=== PATIENT | male | born 1970 | race Caucasian/White ===

== ENCOUNTER 2022-08-28 08:16 | Inpatient (IN) | payer OTHER ==
[~2022-08-28] VITALS: Ht 182.9 cm; Wt 77.1 kg
[2022-08-28] VITALS (8 sets, daily range): BP systolic 119–145; BP diastolic 75–98
[2022-08-28] MEDS ORDERED: LORAZEPAM 1 MG TABLET PO ONE (08:30)
--- NOTE | 2022-08-28 08:30 | NUR ---
CAME IN C/O CHEST PAIN SINCE THIS MORNING
--- NOTE | 2022-08-28 08:32 | NUR ---
HOOKED TO MONITOR
--- NOTE | 2022-08-28 08:32 | NUR ---
TECH AT BEDSIDE FOR EKG
--- NOTE | 2022-08-28 08:35 | NUR ---
ESTABLISHED IV LINE 20 RIGHT AC , BLOOD SAMPLE OBTAINED SENT TO LAB
[2022-08-28] MEDS ORDERED: LORAZEPAM 1 MG TABLET ONE (08:42)
[2022-08-28 08:57] LABS: BASOPHILS # (AUTO) 0.1 K/uL (0.0-0.2); BASOPHILS % (AUTO) 1.3 % (0.0-2.0); EOSINOPHILS % (AUTO) 1.6 % (0.0-6.0); HEMATOCRIT 47 % (39-51); HEMOGLOBIN 15.8 g/dL (13.5-17.5); LYMPHOCYTES # (AUTO) 2.7 K/uL (0.8-4.8); LYMPHOCYTES % (AUTO) 38.7 % (20.0-44.0); MEAN CORPUSCULAR HGB CONC 34 g/dl (31.0-36.0); MEAN CORPUSCULAR VOLUME 103 fL (80-96); MONOCYTES # (AUTO) 0.8 K/uL (0.1-1.30); MONOCYTES % (AUTO) 11.4 % (2.0-12.0); NEUTROPHILS # (AUTO) 3.2 K/uL (1.8-8.9); PLATELET COUNT (AUTO) 220 K/uL (150-450); RED BLOOD CELL COUNT(AUTO) 4.54 MIL/uL (4.5-6.0); WHITE BLOOD COUNT (AUTO) 6.9 K/uL (4.3-11.0)
[2022-08-28 09:08] LABS: CALCIUM, SERUM 9.6 mg/dL (8.5-10.1); CARBON DIOXIDE 22 mmol/L (21-32); CHLORIDE 100 mmol/L (98-107); CREATININE 1.4 mg/dL (0.6-1.3); GLUCOSE 139 mg/dL (74-106); POTASSIUM 2.9 mmol/L (3.5-5.1); SODIUM SERUM 141 mmol/L (136-145); UREA NITROGEN, BLOOD 8 mg/dL (7-18)
[2022-08-28 09:16] LABS: ALANINE AMINOTRANSFERASE 105 U/L (12-78); ALBUMIN 4.2 g/dL (3.4-5.0); ALKALINE PHOSPHATASE 113 U/L (46-116); ASPARTATE AMINOTRANSFERASE 80 U/L (15-37); BILIRUBIN,DIRECT 0.4 mg/dL (0.0-0.2); BILIRUBIN,TOTAL 1.1 mg/dL (0.2-1.0); TOTAL PROTEIN, SERUM 7.8 g/dL (6.4-8.2)
--- NOTE | 2022-08-28 09:29 | NUR ---
Epic supervisor education paged via exchange
[2022-08-28] MEDS: POTASSIUM CL. PREMIX PERIPHER. 50 ML IV SCH ×4 (09:30→12:55)
[2022-08-28] MEDS ORDERED: ASPIRIN 325 MG TABLET PO ONE (09:30)
[2022-08-28] MEDS ORDERED: POTASSIUM CL. PREMIX PERIPHER. 50 ML ONE ×4 (09:34→12:51)
[2022-08-28] MEDS ORDERED: ASPIRIN 325 MG TABLET ONE (09:34)
--- NOTE | 2022-08-28 10:17 | NUR ---
DR. CHRISTOPHER SPEAKING WITH DR. PHILLIPS.
[2022-08-28] MEDS ORDERED: ONDANSETRON HCL/PF 4 MG/2 ML VIAL ONE (10:27)
[2022-08-28] MEDS ORDERED: ONDANSETRON HCL/PF - ER 4 MG/2 ML VIAL IV ONE (10:30)
--- NOTE | 2022-08-28 11:00 | NUR ---
COVID SWAB TAKEN SENTTO LAB
[2022-08-28] MEDS ORDERED: MORPHINE SULFATE INJ 2 MG/ML DISP.SYRIN IV ONE (12:00)
[2022-08-28] MEDS ORDERED: MORPHINE SULFATE INJ 4 MG/ML DISP.SYRIN ONE (12:01)
--- NOTE | 2022-08-28 14:25 | NUR ---
TROPONIN LEVEL = 1111 NOTIFIED
--- NOTE | 2022-08-28 14:35 | NUR ---
TROPONIN LEVEL REPORTED TO DR. PHILLIPS
[2022-08-28] MEDS ORDERED: NITROGLYCERIN 0.4 MG/HR PATCH.TD24 TD SCH (15:00)
[2022-08-28] MEDS ORDERED: ENOXAPARIN SODIUM 80 MG/0.8 ML DISP.SYRIN SQ ONE ×2 (15:00→15:41)
[2022-08-28] MEDS ORDERED: IV SET PRIMARY PUMP SET 1 EA INFUS.SET MC ONE (16:38)
[2022-08-28] MEDS ORDERED: IV NS 0.9% 1,000 ML ONE (16:38)
[2022-08-28] MEDS ORDERED: LIDOCAINE HCL/MPF 1% 30 ML VIAL IJ ONE (16:39)
[2022-08-28] MEDS ORDERED: MIDAZOLAM HCL 2 MG/2ML VIAL ONE (16:39)
[2022-08-28] MEDS ORDERED: FENTANYL PF 100MCG/2ML AMPUL ONE (16:39)
[2022-08-28] MEDS ORDERED: IODIXANOL 150 ML IV ONE (16:41)
--- NOTE | 2022-08-28 16:53 | NUR ---
PATIENT TAKEN TO CATH. LAB VIA ANDREW
--- NOTE | 2022-08-28 17:11 | NUR ---
GOT BED 251
[2022-08-28] MEDS ORDERED: IODIXANOL 320MG/ML 50 ML IV ONE (17:39)
[2022-08-28] MEDS ORDERED: MAGNESIUM HYDROXIDE 30 ML UDC PO PRN (18:00)
[2022-08-28] MEDS ORDERED: Z GUARD REMEDY 4 OZ OINT TP PRN (18:00)
[2022-08-28] MEDS ORDERED: MORPHINE SULFATE INJ 2 MG/ML DISP.SYRIN IV PRN (18:00)
[2022-08-28] MEDS ORDERED: ACETAMINOPHEN 325 MG TABLET PO PRN (18:00)
[2022-08-28] MEDS ORDERED: ZOLPIDEM TARTRATE 5 MG TABLET PO PRN (18:00)
[2022-08-28] MEDS ORDERED: MAG HYDROX/AL HYDROX/SIMETH 30 ML UDC PO PRN (18:00)
[2022-08-28] MEDS ORDERED: HYDROCODONE/APAP 5/325MG TABLET PO PRN (18:00)
--- NOTE | 2022-08-28 18:08 | NUR ---
PATIENT REDIRECT TO ICU FROM CATH. LAB. REPORT GIVEN TO STEPHANIE CHILDRESS ICU ROOM 251 FOR BULMARO
--- NOTE | 2022-08-28 18:30 | NUR ---
SURFACING MACHINE OPERATOR RECEIVED FROM SHELL PRESS OPERATOR BY TALON WITH MONITOR. REPORT RECEIVED FROM ROBERT GRACE RN (SHELL PRESS OPERATOR RN). PT AWAKE AND ALERT FOLLOWING COMMANDS. SPEECH CLEAR. TR BAND OVER RIGHT RADIAL ARTERY INTACT, INFLATED. WILL START TO DEFLATE AROUND 1944. NO BLEEDING SEEN IN AREA.
[2022-08-28] MEDS: ONDANSETRON HCL/PF 4 MG/2 ML VIAL IVP PRN (19:13)
--- NOTE | 2022-08-28 19:13 | NUR ---
CROSS TIE CUTTER PT C/O NAUSEA. MEDICATED WITH ZOFRAN.
--- NOTE | 2022-08-28 19:22 | NUR ---
ICU/RN: DR. CALDWELL NOTIFIED OF CRITICAL TROPONIN AND THAT ITS TRENDING DOWN. NO NEW ORDERS.
[2022-08-28] MEDS ORDERED: ENOXAPARIN SODIUM 40 MG/0.4 ML DISP.SYRIN SQ SCH (20:00)
--- NOTE | 2022-08-28 21:35 | NUR ---
TR BAND REMOVAL: 2000: 3ML AIR REMOVED NO BLEEDING 2030: 3ML AIR REMOVED NO BLEEDING 2045: 3ML AIR REMOVED NO BLEEDING 2115: 3ML AIR REMOVED NO BLEEDING 2135: 4ML AIR REMOVED NO BLEEDING. TR BAND REMOVED. TRANSPARENT DRESSING APPLIED.
[2022-08-28] MEDS ORDERED: SIMVASTATIN 20 MG TABLET PO SCH (22:00)
[2022-08-29] VITALS: BP 130/91
[2022-08-29] MEDS: ONDANSETRON HCL/PF 4 MG/2 ML VIAL IVP PRN (00:58)
[2022-08-29 01:01] VITALS: BP 139/79
[2022-08-29 02:02] VITALS: BP 194/147
[2022-08-29 03:07] VITALS: BP 136/39
[2022-08-29 04:00] VITALS: BP 142/94
--- NOTE | 2022-08-29 04:30 | NUR ---
ICU/RN: PT REFUSING LABS AND ANY OTHER TREATMENTS AND IS REQUESTING TO LEAVE THE HOSPITAL AGAINST MEDICAL ADVICE. ALL BENEFITS OF HOSPITALIZATION AND RISKS OF LEAVING AGAINST MEDICAL ADVICE INCLUDING EXPLAINED TO PT. PT VERBALIZED UNDERSTANDING. RIGHT AC #20 IV CATH REMOVED TIP INTACT SITE BENIGN. LATISHA DAVILA DNP NOTIFIED PT ESCORTED TO EMERGENCY ROOM EXIT. PT LEFT PREMESIS.
--- NOTE | 2022-08-29 04:42 | NUR ---
ICU/RN: INCIDENT REPORT COMPLETED AND LITHOSTRIPPER NOTIFIED.
[2022-08-29] MEDS ORDERED: PANTOPRAZOLE 40 MG TABLET.DR PO SCH (07:30)
[2022-08-29] MEDS ORDERED: ASPIRIN 325 MG TABLET PO SCH (09:00)
== END 2022-08-29 04:25 | disposition home or self-care (01) | DRG 190 ==
LOC: ER 08:16 → ICU 17:34
PROVIDERS: ADMIT Student in an Organized Health Care Education/Training Program; ATTEND Student in an Organized Health Care Education/Training Program
PROC: 4A023N7 Measurement of Cardiac Sampling and Pressure, Left Heart, Percutaneous Approach (ICD-10-PCS; principal; 2022-08-28)
PROC: B215YZZ Fluoroscopy of Left Heart using Other Contrast (ICD-10-PCS; 2022-08-28)
PROC: B211YZZ Fluoroscopy of Multiple Coronary Arteries using Other Contrast (ICD-10-PCS; 2022-08-28)
DX: I21.4 Non-ST elevation (NSTEMI) myocardial infarction (principal); N17.0 Acute kidney failure with tubular necrosis; I42.9 Cardiomyopathy, unspecified; F41.9 Anxiety disorder, unspecified; Z20.822 Contact with and (suspected) exposure to COVID-19; I49.3 Ventricular premature depolarization; F10.10 Alcohol abuse, uncomplicated; F12.20 Cannabis dependence, uncomplicated; Y90.9 Presence of alcohol in blood, level not specified; E87.6 Hypokalemia; R74.01 Elevation of levels of liver transaminase levels
CPT/HCPCS: 36415; 71045-TC; 80048-TC; 80076-TC; 83690-TC; 84484-TC; 85025-TC; 87081-TC; 93307-TC; C1887; C9803; G0378; G0500; J1644; J1650; J2250; J2270; J2405; J3010; J3480; J3490; J7030; Q9967

== ENCOUNTER 2023-09-02 20:13 | Emergency (ER) | payer SELFPAY ==
[~2023-09-02] VITALS: Ht 182.9 cm; Wt 90.7 kg
[2023-09-02] MEDS ORDERED: SILVER SULFADIAZINE CREAM 25 GM TUBE TP ONE (21:00)
[2023-09-02] MEDS ORDERED: TDAP [DIPH/PERTUSSIS/TET] 0.5 ML VIAL IM ONE ×2 (21:00→21:48)
[2023-09-02] MEDS ORDERED: IV LR 1000 ML 1,000 ML BAG IV ONE ×2 (21:00)
[2023-09-02 21:19] LABS: ABG BASE EXCESS -8.7 mmol/L; ABG OXYGEN SATURATION 96.6 % (92.0-98.5); ABG PCO2 20.6 mmHg (35.0-45.0); ABG PH 7.422 (7.350-7.450); ABG PO2 93.6 mmHg (75.0-100.0); MetHb 0.3 % (0.0-1.5); O2Hb 94.4 % (94.0-97.0); SITE, ABG Right Radial; VENT MODE, BG ROOM AIR
[2023-09-02 21:41] LABS: BASOPHILS % (AUTO) 0.2 % (0.0-2.0); HEMATOCRIT 43 % (39-51); HEMOGLOBIN 14.4 g/dL (13.5-17.5); LYMPHOCYTES # (AUTO) 2.1 K/uL (0.8-4.8); LYMPHOCYTES % (AUTO) 24.8 % (20.0-44.0); MEAN CORPUSCULAR HEMOGLOBIN 32 PG (26.0-33.0); MEAN CORPUSCULAR HGB CONC 33 g/dl (31.0-36.0); MEAN CORPUSCULAR VOLUME 95 fL (80-96); MONOCYTES # (AUTO) 0.8 K/uL (0.1-1.30); MONOCYTES % (AUTO) 8.9 % (2.0-12.0); NEUTROPHILS # (AUTO) 5.7 K/uL (1.8-8.9); NEUTROPHILS % (AUTO) 66.1 % (43.0-81.0); PLATELET COUNT (AUTO) 248 K/uL (150-450); RED BLOOD CELL COUNT(AUTO) 4.55 MIL/uL (4.5-6.0); RED CELL DISTRIBUTION WIDTH 19.1 % (11.5-15.0); WHITE BLOOD COUNT (AUTO) 8.6 K/uL (4.3-11.0)
[2023-09-02] MEDS ORDERED: HYDROMORPHONE 1 MG/1 ML DISP.SYRIN ONE (21:48)
[2023-09-02 21:49] LABS: CALCIUM, SERUM 8.8 mg/dL (8.5-10.1); POTASSIUM 3.5 mmol/L (3.5-5.1)
[2023-09-02] MEDS ORDERED: HYDROMORPHONE 1 MG/1 ML DISP.SYRIN IV ONE (22:00)
[2023-09-02] MEDS ORDERED: HYDR-3972 PO (22:26)
[2023-09-02 22:50] LABS: AMPHETAMINE, URINE NEGATIVE (NEGATIVE); BARBITURATE, URINE NEGATIVE (NEGATIVE); COCCAINE, URINE NEGATIVE (NEGATIVE); PHENCYCLIDINE SCREEN,URINE NEGATIVE (NEGATIVE)
[2023-09-02 22:52] LABS: BENZODIAZEPINE, URINE POSITIVE (NEGATIVE); CANNABINOID, URINE POSITIVE (NEGATIVE); OPIATE, URINE POSITIVE (NEGATIVE)
[2023-09-02 22:58] VITALS: BP 130/70; TEMP 98; O2SAT 99
[2023-09-02] MEDS ORDERED: HYDROCODONE/APAP 5/325MG TABLET PO ONE (23:00)
[2023-09-04] MEDS ORDERED: PIPERACI/TAZO 3.375GM/D5W 50ML PB IV ONE (21:31)
[2023-09-07] MEDS ORDERED: SILV20CR13 TP (09:25)
[2023-09-07] MEDS ORDERED: CEPH250C PO (09:25)
[2023-09-07] MEDS ORDERED: Lorazepam PO (09:25)
[2023-09-07] MEDS ORDERED: Hydrocodone/Apap 5/325MG PO (09:25)
[2023-09-07] MEDS ORDERED: FLUO20CA36 PO (09:25)
[2023-09-07] MEDS ORDERED: LORA-259 PO (09:49)
[2023-09-07] MEDS ORDERED: HYDR-3976 PO (09:49)
== END 2023-09-02 22:58 | disposition home or self-care (01) ==
LOC: ER 20:14
DX: T20.27XA Burn of second degree of neck, initial encounter (principal); T24.211A Burn of second degree of right thigh, initial encounter; T24.202A Burn of second degree of unspecified site of left lower limb, except ankle and foot, initial encounter; T24.201A Burn of second degree of unspecified site of right lower limb, except ankle and foot, initial encounter; T22.112A Burn of first degree of left forearm, initial encounter; T22.111A Burn of first degree of right forearm, initial encounter; T31.11 Burns involving 10-19% of body surface with 10-19% third degree burns; F17.200 Nicotine dependence, unspecified, uncomplicated; Z60.2 Problems related to living alone; X08.8XXA Exposure to other specified smoke, fire and flames, initial encounter; Y93.89 Activity, other specified; Y92.89 Other specified places as the place of occurrence of the external cause; Y99.8 Other external cause status
CPT/HCPCS: 99285; 96374; 90471; 96361; 93005; 82803; 90715; 71045; 85025; 80048; 82550; 36415; 36600 ×2; 80320; 80307; J7120 ×3; J1170; G0480; J2543

== ENCOUNTER 2023-09-04 15:02 | Inpatient (IN) | payer MEDICAID ==
[~2023-09-04] VITALS: Ht 215.9 cm; Wt 83.5 kg
[~2023-09-04 15:02] MED LIST: HYDR-3972 PO
[2023-09-04 16:45] LABS: ALANINE AMINOTRANSFERASE 37 U/L (12-78); ALBUMIN 4.1 g/dL (3.4-5.0); ALCOHOL, BLOOD 261 mg/dL (0-10); ALKALINE PHOSPHATASE 114 U/L (46-116); ASPARTATE AMINOTRANSFERASE 32 U/L (15-37); BILIRUBIN,DIRECT 0.2 mg/dL (0.0-0.2); BILIRUBIN,TOTAL 0.9 mg/dL (0.2-1.0); CALCIUM, SERUM 9.5 mg/dL (8.5-10.1); CARBON DIOXIDE 15 mmol/L (21-32); CHLORIDE 99 mmol/L (98-107); CREATININE 0.8 mg/dL (0.6-1.3); GLUCOSE 79 mg/dL (74-106); POTASSIUM 3.1 mmol/L (3.5-5.1); SODIUM SERUM 138 mmol/L (136-145); TOTAL PROTEIN, SERUM 8.8 g/dL (6.4-8.2); UREA NITROGEN, BLOOD 7 mg/dL (7-18)
[2023-09-04 16:47] LABS: ACETAMINOPHEN <10 ug/ml (10-30); SALICYLATE 1.7 mg/dL (2.8-20.0)
[2023-09-04 16:55] LABS: APPEARANCE,URINE CLEAR (CLEAR); BILIRUBIN,URINE 1+ (NEGATIVE); BLOOD, URINE 1+ Ery/uL (NEGATIVE); COLOR,URINE YELLOW (YELLOW); KETONES,URINE 3+ mg/dL (NEGATIVE); LEUKOCYTE ESTERASE ,URINE NEGATIVE (NEGATIVE); NITRITE, URINE NEGATIVE (NEGATIVE); PROTEIN,URINE 2+ mg/dl (NEGATIVE); UGLUCOSE NEGATIVE (NEGATIVE); UROBILINOGEN,URINE 0.2 EU/dL (0.2)
[2023-09-04 17:05] LABS: AMPHETAMINE, URINE NEGATIVE (NEGATIVE); BARBITURATE, URINE NEGATIVE (NEGATIVE); COCCAINE, URINE NEGATIVE (NEGATIVE); PHENCYCLIDINE SCREEN,URINE NEGATIVE (NEGATIVE)
[2023-09-04 17:06] LABS: BENZODIAZEPINE, URINE POSITIVE (NEGATIVE); CANNABINOID, URINE POSITIVE (NEGATIVE); OPIATE, URINE POSITIVE (NEGATIVE)
[2023-09-04 17:10] LABS: BASOPHILS # (AUTO) 0.1 K/uL (0.0-0.2); BASOPHILS % (AUTO) 0.3 % (0.0-2.0); EOSINOPHILS % (AUTO) 0.1 % (0.0-6.0); HEMATOCRIT 48 % (39-51); HEMOGLOBIN 16.1 g/dL (13.5-17.5); LYMPHOCYTES # (AUTO) 1.7 K/uL (0.8-4.8); LYMPHOCYTES % (AUTO) 10.2 % (20.0-44.0); MEAN CORPUSCULAR HEMOGLOBIN 31 PG (26.0-33.0); MEAN CORPUSCULAR HGB CONC 33 g/dl (31.0-36.0); MEAN CORPUSCULAR VOLUME 94 fL (80-96); MONOCYTES # (AUTO) 1.3 K/uL (0.1-1.30); MONOCYTES % (AUTO) 7.8 % (2.0-12.0); NEUTROPHILS # (AUTO) 13.8 K/uL (1.8-8.9); NEUTROPHILS % (AUTO) 81.6 % (43.0-81.0); PLATELET COUNT (AUTO) 239 K/uL (150-450); RED BLOOD CELL COUNT(AUTO) 5.14 MIL/uL (4.5-6.0); RED CELL DISTRIBUTION WIDTH 18.8 % (11.5-15.0); WHITE BLOOD COUNT (AUTO) 16.9 K/uL (4.3-11.0)
[2023-09-04 17:57] LABS: ADD URINE CULTURE NO; BACTERIA,URINE Rare /HPF (None Seen); MUCUS,URINE Moderate /LPF (None Seen); SQUAMOUS EPITHELIAL CELL,UR Few /HPF (None Seen); WBC,URINE 0-2 /HPF (0-3)
[2023-09-04] MEDS ORDERED: VANCOMYCIN 1 GM in IV D5W 250 ML IV ONE (18:00)
[2023-09-04] MEDS ORDERED: CEFEPIME 1 GM in IV D5W 50 ML IV ONE (18:00)
[2023-09-04] MEDS ORDERED: IV NS 0.9% 1,000 ML BAG IV ONE (18:00)
[2023-09-04] MEDS ORDERED: ACETAMINOPHEN ES 500 MG TABLET PO PRN (18:30)
[2023-09-04 19:51] LABS: LACTIC ACID 3.4 mmol/L (0.4-2.0)
[2023-09-04] MEDS ORDERED: PIPERACILLIN /TAZOBACTAM 3.375 G in IV D5W 50 ML IV SCH (21:00)
[2023-09-04 21:30] VITALS: BP 133/95; TEMP 99.4; O2SAT 99
[2023-09-05] MEDS: HYDROCODONE/APAP 5/325MG TABLET PO PRN ×5 (01:04→23:02)
[2023-09-05] MEDS ORDERED: PIPERACILLIN /TAZOBACTAM 3.375 G in IV D5W 50 ML IV SCH (05:00)
[2023-09-05] MEDS ORDERED: PIPERACI/TAZO 3.375GM/D5W 50ML PB IV ONE (05:25)
[2023-09-05] MEDS ORDERED: VANCOMYCIN 1.5 GM in IV D5W 500ml IV ONE (06:00)
[2023-09-05 06:37] VITALS: BP 130/98; TEMP 98.8; O2SAT 98
[2023-09-05] MEDS ORDERED: VANCOMYCIN 1.25 GM in IV D5W 250 ML IV ONE (07:30)
[2023-09-05 08:07] LABS: HEMOGLOBIN 12.8 g/dL (13.5-17.5)
[2023-09-05 08:17] LABS: CALCIUM, SERUM 8.6 mg/dL (8.5-10.1); CREATININE 0.6 mg/dL (0.6-1.3)
[2023-09-05 08:18] LABS: BASOPHILS % (AUTO) 0.4 % (0.0-2.0); EOSINOPHILS % (AUTO) 0.3 % (0.0-6.0); HEMATOCRIT 38 % (39-51); LYMPHOCYTES # (AUTO) 1.5 K/uL (0.8-4.8); LYMPHOCYTES % (AUTO) 12.8 % (20.0-44.0); MEAN CORPUSCULAR HEMOGLOBIN 32 PG (26.0-33.0); MEAN CORPUSCULAR HGB CONC 34 g/dl (31.0-36.0); MEAN CORPUSCULAR VOLUME 94 fL (80-96); MONOCYTES # (AUTO) 0.9 K/uL (0.1-1.30); MONOCYTES % (AUTO) 7.6 % (2.0-12.0); NEUTROPHILS # (AUTO) 9.4 K/uL (1.8-8.9); NEUTROPHILS % (AUTO) 78.9 % (43.0-81.0); PLATELET COUNT (AUTO) 178 K/uL (150-450); RED CELL DISTRIBUTION WIDTH 18.4 % (11.5-15.0); WHITE BLOOD COUNT (AUTO) 11.9 K/uL (4.3-11.0)
[2023-09-05] MEDS ORDERED: LORAZEPAM 1 MG TABLET PO PRN (09:30)
[2023-09-05 09:33] LABS: PLATELET ESTIMATE ADEQU
[2023-09-05] MEDS: PIPERACILLIN /TAZOBACTAM 3.375 G in IV D5W 100 ML IV SCH ×2 (10:47→18:28)
[2023-09-05] MEDS: Fluoxetine 10 mg capsule PO SCH (12:14)
[2023-09-05] MEDS: LORAZEPAM INJ 2 MG/ML VIAL IV PRN ×3 (12:52→22:01)
[2023-09-05] MEDS: VANCOMYCIN 1 GM in IV D5W 250 ML IV SCH (16:42)
[2023-09-05] MEDS: POTASSIUM CHLORIDE 20 MEQ TAB.PRT.SR PO SCH ×3 (16:42→19:09)
[2023-09-05] MEDS: SILVER SULFADIAZINE 50 GM JAR TP SCH (17:26)
[2023-09-05] MEDS: ONDANSETRON HCL/PF 4 MG/2 ML VIAL IV PRN ×2 (17:46→22:13)
[2023-09-05 20:00] VITALS: BP 140/87; TEMP 99; O2SAT 97
[2023-09-06] MEDS: VANCOMYCIN 1 GM in IV D5W 250 ML IV SCH ×4 (00:21→23:09)
[2023-09-06] MEDS: PIPERACILLIN /TAZOBACTAM 3.375 G in IV D5W 100 ML IV SCH ×3 (02:07→17:46)
[2023-09-06] MEDS: LORAZEPAM INJ 2 MG/ML VIAL IV PRN ×5 (03:27→21:46)
[2023-09-06 06:48] LABS: CREATININE 0.7 mg/dL (0.6-1.3); MAGNESIUM 2.1 mg/dL (1.8-2.4); PHOSPHORUS 2.3 mg/dL (2.5-4.9); POTASSIUM 2.9 mmol/L (3.5-5.1)
[2023-09-06 07:30] VITALS: BP 146/97; TEMP 99.1; O2SAT 97
[2023-09-06] MEDS ORDERED: POTASSIUM CHLORIDE 20 MEQ TAB.PRT.SR PO ONE (08:00)
[2023-09-06] MEDS: ONDANSETRON HCL/PF 4 MG/2 ML VIAL IV PRN ×3 (08:04→16:27)
[2023-09-06 09:00] VITALS: BP 94/55; TEMP 97.9; O2SAT 78
[2023-09-06] MEDS: POTASSIUM PHOSPHATE MM 7.5 MMOL in IV NS 0.9% 100 ML IV SCH ×2 (09:35→09:36)
[2023-09-06] MEDS: SILVER SULFADIAZINE 50 GM JAR TP SCH ×2 (09:42→16:33)
[2023-09-06] MEDS: HYDROCODONE/APAP 5/325MG TABLET PO PRN ×3 (10:36→23:07)
[2023-09-06] MEDS: Fluoxetine 10 mg capsule PO SCH ×2 (13:00→13:19)
[2023-09-06] MEDS: ENSURE ENLIVE 237 ML LIQUID (VANILLA) PO SCH ×2 (13:31→17:10)
[2023-09-06] MEDS ORDERED: K PHOS NEUTRAL 250 MG TABLET PO ONE (15:30)
[2023-09-06 16:00] VITALS: BP 124/86; TEMP 99.3; O2SAT 98
[2023-09-06 20:00] VITALS: BP_SYST 124; BP_SYST 143; BP_DIAS 76; BP_DIAS 95; TEMP 98.2; TEMP 99; O2SAT 97
[2023-09-07] MEDS: LORAZEPAM INJ 2 MG/ML VIAL IV PRN (01:58)
[2023-09-07] MEDS: PIPERACILLIN /TAZOBACTAM 3.375 G in IV D5W 100 ML IV SCH ×3 (02:13→18:44)
[2023-09-07 07:00] VITALS: BP 128/95; TEMP 98.6; O2SAT 97
[2023-09-07 07:33] LABS: BASOPHILS % (AUTO) 0.5 % (0.0-2.0); EOSINOPHILS # (AUTO) 0.1 K/uL (0.0-0.7); EOSINOPHILS % (AUTO) 2.1 % (0.0-6.0); HEMATOCRIT 38 % (39-51); HEMOGLOBIN 13.2 g/dL (13.5-17.5); LYMPHOCYTES # (AUTO) 1.2 K/uL (0.8-4.8); MEAN CORPUSCULAR HEMOGLOBIN 32 PG (26.0-33.0); MEAN CORPUSCULAR HGB CONC 35 g/dl (31.0-36.0); MEAN CORPUSCULAR VOLUME 93 fL (80-96); MONOCYTES # (AUTO) 0.6 K/uL (0.1-1.30); MONOCYTES % (AUTO) 11.5 % (2.0-12.0); NEUTROPHILS # (AUTO) 3.1 K/uL (1.8-8.9); NEUTROPHILS % (AUTO) 61.9 % (43.0-81.0); PLATELET COUNT (AUTO) 201 K/uL (150-450); RED BLOOD CELL COUNT(AUTO) 4.09 MIL/uL (4.5-6.0); RED CELL DISTRIBUTION WIDTH 17.4 % (11.5-15.0)
[2023-09-07 07:54] LABS: CALCIUM, SERUM 9.1 mg/dL (8.5-10.1); CREATININE 0.9 mg/dL (0.6-1.3); PHOSPHORUS 3.1 mg/dL (2.5-4.9); POTASSIUM 2.9 mmol/L (3.5-5.1)
[2023-09-07] MEDS: ENSURE ENLIVE 237 ML LIQUID (VANILLA) PO SCH ×3 (08:08→17:38)
[2023-09-07] MEDS: VANCOMYCIN 1 GM in IV D5W 250 ML IV SCH ×2 (09:16→17:38)
[2023-09-07] MEDS ORDERED: SILV20CR13 TP (09:25)
[2023-09-07] MEDS ORDERED: CEPH250C PO (09:25)
[2023-09-07] MEDS ORDERED: FLUO20CA36 PO (09:25)
[2023-09-07] MEDS ORDERED: Hydrocodone/Apap 5/325MG PO (09:25)
[2023-09-07] MEDS ORDERED: Lorazepam PO (09:25)
[2023-09-07] MEDS: LORAZEPAM 0.5 MG TABLET PO PRN ×2 (09:28→17:27)
[2023-09-07] MEDS ORDERED: POTASSIUM CHLORIDE 20 MEQ TAB.PRT.SR PO ONE (09:30)
[2023-09-07] MEDS: SILVER SULFADIAZINE 50 GM JAR TP SCH ×2 (09:40→17:00)
[2023-09-07] MEDS ORDERED: HYDR-3976 PO (09:49)
[2023-09-07] MEDS ORDERED: LORA-259 PO (09:49)
[2023-09-07] MEDS: HYDROCODONE/APAP 5/325MG TABLET PO PRN ×2 (10:32→17:27)
[2023-09-07] MEDS: ONDANSETRON HCL/PF 4 MG/2 ML VIAL IV PRN ×2 (10:35→17:29)
[2023-09-07] MEDS ORDERED: FLUOXETINE HCL 20 MG CAPSULE PO SCH (13:00)
== END 2023-09-07 19:44 | disposition home or self-care (01) | DRG 843 ==
LOC: ER 15:05 → MED 21:23
PROVIDERS: ADMIT Nurse Practitioner Family; ATTEND Internal Medicine
PROC: 05H933Z Insertion of Infusion Device into Right Brachial Vein, Percutaneous Approach (ICD-10-PCS; principal; 2023-09-04)
DX: T24.302A Burn of third degree of unspecified site of left lower limb, except ankle and foot, initial encounter (principal); E87.20 Acidosis, unspecified; F33.3 Major depressive disorder, recurrent, severe with psychotic symptoms; L03.115 Cellulitis of right lower limb; F29 Unspecified psychosis not due to a substance or known physiological condition; T31.0 Burns involving less than 10% of body surface; L03.116 Cellulitis of left lower limb; E87.6 Hypokalemia; T24.311A Burn of third degree of right thigh, initial encounter; F10.129 Alcohol abuse with intoxication, unspecified; Y90.8 Blood alcohol level of 240 mg/100 ml or more; F19.10 Other psychoactive substance abuse, uncomplicated; X08.8XXA Exposure to other specified smoke, fire and flames, initial encounter; Y93.9 Activity, unspecified; T20.25XA Burn of second degree of scalp [any part], initial encounter; Y92.039 Unspecified place in apartment as the place of occurrence of the external cause
CPT/HCPCS: 36415; 71045-TC; 80048-TC; 80076-TC; 80202-TC; 81001; 83605-TC; 83735-TC; 84100-TC; 84132-TC; 84484-TC; 85025-TC; 87040-TC; A4223; A6253; A6403; G0378; G0480; J0692; J2060; J2405; J2543; J3370; J3490; J7030; J7040; J7050; J7060

== ENCOUNTER 2023-09-10 11:21 | Inpatient (IN) | payer MEDICAID ==
[~2023-09-10] VITALS: Ht 182.9 cm; Wt 82.6 kg
[~2023-09-10 11:21] MED LIST changes: +CEPH250C PO; +FLUO20CA36 PO; -HYDR-3972 PO; +HYDR-3976 PO; +Hydrocodone/Apap 5/325MG PO; +LORA-259 PO; +Lorazepam PO; +SILV20CR13 TP
[2023-09-10] MEDS ORDERED: OLANZAPINE 10 MG VIAL IM ONE ×2 (11:50→12:00)
[2023-09-10] MEDS ORDERED: LORAZEPAM INJ 2 MG/ML VIAL ONE (11:51)
[2023-09-10] MEDS ORDERED: LORAZEPAM INJ 2 MG/ML VIAL IM ONE (12:00)
[2023-09-10 12:18] LABS: BASOPHILS % (AUTO) 0.4 % (0.0-2.0); EOSINOPHILS # (AUTO) 0.1 K/uL (0.0-0.7); EOSINOPHILS % (AUTO) 1.6 % (0.0-6.0); HEMATOCRIT 42 % (39-51); HEMOGLOBIN 14.2 g/dL (13.5-17.5); LYMPHOCYTES # (AUTO) 4.7 K/uL (0.8-4.8); LYMPHOCYTES % (AUTO) 52.7 % (20.0-44.0); MEAN CORPUSCULAR HEMOGLOBIN 32 PG (26.0-33.0); MEAN CORPUSCULAR HGB CONC 34 g/dl (31.0-36.0); MEAN CORPUSCULAR VOLUME 95 fL (80-96); MONOCYTES # (AUTO) 0.6 K/uL (0.1-1.30); MONOCYTES % (AUTO) 6.9 % (2.0-12.0); NEUTROPHILS # (AUTO) 3.4 K/uL (1.8-8.9); NEUTROPHILS % (AUTO) 38.4 % (43.0-81.0); PLATELET COUNT (AUTO) 403 K/uL (150-450); RED BLOOD CELL COUNT(AUTO) 4.45 MIL/uL (4.5-6.0); WHITE BLOOD COUNT (AUTO) 8.8 K/uL (4.3-11.0)
[2023-09-10 12:30] LABS: CALCIUM, SERUM 8.4 mg/dL (8.5-10.1); CREATININE 0.8 mg/dL (0.6-1.3); POTASSIUM 2.9 mmol/L (3.5-5.1)
[2023-09-10 12:31] LABS: APPEARANCE,URINE CLEAR (CLEAR); BILIRUBIN,URINE NEGATIVE (NEGATIVE); BLOOD, URINE TRACE-INTA Ery/uL (NEGATIVE); COLOR,URINE YELLOW (YELLOW); KETONES,URINE NEGATIVE (NEGATIVE); LEUKOCYTE ESTERASE ,URINE NEGATIVE (NEGATIVE); NITRITE, URINE NEGATIVE (NEGATIVE); PROTEIN,URINE 1+ mg/dl (NEGATIVE); UGLUCOSE NEGATIVE (NEGATIVE); UROBILINOGEN,URINE 0.2 EU/dL (0.2)
[2023-09-10 12:44] LABS: ALBUMIN 3.5 g/dL (3.4-5.0); BILIRUBIN,DIRECT 0.3 mg/dL (0.0-0.2); BILIRUBIN,TOTAL 0.4 mg/dL (0.2-1.0); SALICYLATE 0.3 mg/dL (2.8-20.0); TOTAL PROTEIN, SERUM 7.9 g/dL (6.4-8.2)
[2023-09-10 12:45] LABS: AMPHETAMINE, URINE NEGATIVE (NEGATIVE); BARBITURATE, URINE NEGATIVE (NEGATIVE); BENZODIAZEPINE, URINE NEGATIVE (NEGATIVE); COCCAINE, URINE NEGATIVE (NEGATIVE); PHENCYCLIDINE SCREEN,URINE NEGATIVE (NEGATIVE)
[2023-09-10 12:46] LABS: CANNABINOID, URINE POSITIVE (NEGATIVE); OPIATE, URINE POSITIVE (NEGATIVE)
[2023-09-10] MEDS ORDERED: IV NS 0.9% 1,000 ML BAG IV ONE (13:30)
[2023-09-10] MEDS ORDERED: Magnesium 1 GM/2 ML VIAL IV ONE (13:30)
[2023-09-10] MEDS ORDERED: IV D5/0.45 NACL 1,000 ML IV PRN (14:00)
[2023-09-10] MEDS ORDERED: ACETAMINOPHEN 650 MG/SUPP.RECT RC PRN (14:00)
[2023-09-10] MEDS ORDERED: Z GUARD REMEDY 4 OZ OINT TP PRN (14:00)
[2023-09-10] MEDS ORDERED: Magnesium 1GM/D5W 100ML PREMIX 100 ML IV ONE (14:00)
[2023-09-10] MEDS ORDERED: ONDANSETRON HCL/PF 4 MG/2 ML VIAL IVP PRN (14:00)
[2023-09-10] MEDS: POTASSIUM CL. PREMIX PERIPHER. 50 ML IV SCH ×4 (15:15→18:00)
[2023-09-10] MEDS ORDERED: POTASSIUM CL. PREMIX PERIPHER. 50 ML ONE ×4 (15:15→17:55)
[2023-09-10] MEDS ORDERED: Thiamine 100 MG in IV D5W 50 ML IV SCH (17:00)
[2023-09-10] MEDS ORDERED: Folic acid 1 MG in IV D5W 50 ML IV SCH (18:00)
[2023-09-10 20:00] VITALS: BP 129/98; TEMP 98.8; O2SAT 94
[2023-09-10] MEDS: LORAZEPAM INJ 2 MG/ML VIAL IV PRN (22:33)
[2023-09-10] MEDS ORDERED: CHLORDIAZEPOXIDE HCL 25 MG CAPSULE PO PRN (23:30)
[2023-09-11] MEDS: LORAZEPAM INJ 2 MG/ML VIAL IV PRN ×4 (02:45→21:49)
[2023-09-11 07:30] VITALS: BP 131/96; TEMP 98.2; O2SAT 100
[2023-09-11] MEDS ORDERED: PANTOPRAZOLE 40 MG VIAL IV SCH (09:00)
[2023-09-11 09:16] LABS: BASOPHILS # (AUTO) 0.1 K/uL (0.0-0.2); BASOPHILS % (AUTO) 0.8 % (0.0-2.0); EOSINOPHILS % (AUTO) 0.5 % (0.0-6.0); HEMATOCRIT 39 % (39-51); HEMOGLOBIN 13.2 g/dL (13.5-17.5); LYMPHOCYTES # (AUTO) 2.6 K/uL (0.8-4.8); MEAN CORPUSCULAR HEMOGLOBIN 32 PG (26.0-33.0); MEAN CORPUSCULAR HGB CONC 34 g/dl (31.0-36.0); MEAN CORPUSCULAR VOLUME 94 fL (80-96); MONOCYTES # (AUTO) 1.3 K/uL (0.1-1.30); MONOCYTES % (AUTO) 15.5 % (2.0-12.0); NEUTROPHILS # (AUTO) 4.1 K/uL (1.8-8.9); NEUTROPHILS % (AUTO) 51.2 % (43.0-81.0); PLATELET COUNT (AUTO) 394 K/uL (150-450); RED CELL DISTRIBUTION WIDTH 17.6 % (11.5-15.0); WHITE BLOOD COUNT (AUTO) 8.1 K/uL (4.3-11.0)
[2023-09-11 09:43] LABS: CALCIUM, SERUM 8.9 mg/dL (8.5-10.1); CREATININE 0.6 mg/dL (0.6-1.3); MAGNESIUM 2.3 mg/dL (1.8-2.4); PHOSPHORUS 2.5 mg/dL (2.5-4.9); POTASSIUM 3.3 mmol/L (3.5-5.1)
[2023-09-11] MEDS: FOLIC ACID 1 MG TABLET PO SCH (11:13)
[2023-09-11] MEDS: THIAMINE HCL 100 MG TABLET PO SCH (11:13)
[2023-09-11 11:30] VITALS: BP 138/104; TEMP 99.1; O2SAT 97
[2023-09-11] MEDS: CHLORDIAZEPOXIDE HCL 25 MG CAPSULE PO SCH ×2 (13:05→16:16)
[2023-09-11 16:00] VITALS: BP 138/100; TEMP 97.7; O2SAT 98
[2023-09-11 21:34] VITALS: BP 122/85; TEMP 98.4; O2SAT 96
[2023-09-12] MEDS: METHOCARBAMOL (500MG) 500 MG TABLET PO PRN (00:49)
[2023-09-12] MEDS: LORAZEPAM INJ 2 MG/ML VIAL IV PRN ×5 (05:10→22:38)
[2023-09-12 07:30] VITALS: BP 145/94; TEMP 99; O2SAT 100
[2023-09-12] MEDS ORDERED: PANTOPRAZOLE 40 MG TABLET.DR PO SCH (07:30)
[2023-09-12] MEDS: THIAMINE HCL 100 MG TABLET PO SCH (08:19)
[2023-09-12] MEDS: CHLORDIAZEPOXIDE HCL 25 MG CAPSULE PO SCH ×3 (08:19→17:33)
[2023-09-12] MEDS: FOLIC ACID 1 MG TABLET PO SCH (08:20)
[2023-09-12] MEDS ORDERED: POTASSIUM CHLORIDE 20 MEQ TAB.PRT.SR PO ONE (08:30)
[2023-09-12] MEDS ORDERED: SILVER SULFADIAZINE CREAM 25 GM TUBE TP SCH (09:00)
[2023-09-12 16:00] VITALS: BP 134/87; TEMP 97.7; O2SAT 98
[2023-09-12 20:00] VITALS: BP 121/86; TEMP 99.2; O2SAT 97
[2023-09-13] MEDS: METHOCARBAMOL (500MG) 500 MG TABLET PO PRN (01:04)
[2023-09-13] MEDS: LORAZEPAM INJ 2 MG/ML VIAL IV PRN (02:33)
== END 2023-09-13 04:30 | disposition left against medical advice (07) | DRG 815 ==
LOC: ER 12:16 → TELE 16:26 → MED 09-11 12:56
PROVIDERS: ATTEND Internal Medicine
DX: T73.0XXA Starvation, initial encounter (principal); E87.20 Acidosis, unspecified; E87.1 Hypo-osmolality and hyponatremia; T24.332A Burn of third degree of left lower leg, initial encounter; T31.0 Burns involving less than 10% of body surface; F10.129 Alcohol abuse with intoxication, unspecified; X58.XXXA Exposure to other specified factors, initial encounter; E87.6 Hypokalemia; T24.201A Burn of second degree of unspecified site of right lower limb, except ankle and foot, initial encounter; T22.112A Burn of first degree of left forearm, initial encounter; T22.111A Burn of first degree of right forearm, initial encounter; F32.A Depression, unspecified; F19.10 Other psychoactive substance abuse, uncomplicated; Y90.8 Blood alcohol level of 240 mg/100 ml or more; Z79.899 Other long term (current) drug therapy; R74.01 Elevation of levels of liver transaminase levels; T20.20XA Burn of second degree of head, face, and neck, unspecified site, initial encounter
CPT/HCPCS: 36415; 80048-TC; 80076-TC; 83735-TC; 84100-TC; 85025-TC; A4223; A6253; C9113; G0378; G0480; J2060; J3411; J3475; J3480; J3490; J7030; J7060